=== PATIENT | male | born 1975 | race Hispanic/Latino ===

== ENCOUNTER 2016-11-27 17:37 | Emergency (ER) ==
[2016-11-27 18:26] LABS: MANUAL DIFF NEEDED? NO
[2016-11-27 18:31] LABS: BASO% 0.3 % (0.0-0.8); EOS# 0.09 X1000 (0.0-0.7); EOS% 0.8 % (0.0-10.0); HEMATOCRIT 46.9 % (42.0-52.0); HEMOGLOBIN 15.8 g/dL (14.0-18.0); IMM GRAN# 0.05 X1000 (0.0-0.04); IMM GRAN% 0.5 % (0.0-0.5); LYMPH% 16.7 % (20.5-51.1); MCH 27.3 PG (27-31); MCHC 33.7 g/dL (33-37); MONO# 0.68 X1000 (0.11-0.59); MONO% 6.3 % (1.7-9.3); MPV 9.2 FL (7.4-10.4); NEUT% 75.4 % (42.2-75.2); PLT 352 X1000 (130-400); RBC 5.79 XMIL (4.7-6.1)
[2016-11-27 18:51] LABS: AGAP 14; ALBUMIN 4.9 g/dL (3.5-5.0); ALKALINE PHOSPHATASE 72 U/L (32-122); BUN 7 mg/dL (8-22); CALCIUM 10.5 mg/dL (8.8-10.2); CHLORIDE 97 mmol/L (98-107); COSMO 272; GOT 19 U/L (10-34); GPT 36 U/L (10-44); POTASSIUM 4.4 mmol/L (3.5-5.1); SODIUM 137 mmol/L (136-145); TCO2 26 mmol/L (25-35); TOTAL BILIRUBIN 0.44 mg/dL (0.20-1.00); TOTAL PROTEIN 8.6 g/dL (6.3-8.3)
[2016-11-27] MEDS ORDERED: NS 500 ML IV ONE (19:03)
[2016-11-27] MEDS ORDERED: TORADOL IV ONE (19:03)
[2016-11-27] MEDS ORDERED: COMPAZINE IV ONE (19:03)
[2016-11-27] MEDS ORDERED: MORPHINE IV ONE (19:03)
[2016-11-27] MEDS ORDERED: BENADRYL IV ONE (19:03)
--- NOTE | 2016-11-27 19:08 | PROVIDER DOCUMENTATION ---
HPI-Headache <Ramsey Ho - Last Filed: 11/27/16 20:34> - General Source: patient - History of Present Illness-Headache Headache Location: reports: temporal Quality of Pain: reports: aching Severity: reports: mild Onset/Duration: reports: 2 days ago Timing: reports: still present Headache Context: reports: nothing Any recent trauma/injury?: reports: none Headache severity at the maximum: mild Headache Exacerbated by:: reports: light Associated Symptoms: reports: headache, nausea, other (sore throat) Similar Symptoms Previously?: No Recently seen or treated by another doctor?: No <Millie Alcaraz - Last Filed: 11/27/16 23:31> - General Chief Complaint: B/P Problems Stated Complaint: STAUFFER,HIGH B/P,NAUSEA,NECK PAIN Time Seen by Provider: 11/27/16 18:45 Allergies/Adverse Reactions: Patient Allergies Allergy/AdvReac Type Severity Reaction Status Date / Time No Known Allergies Allergy Verified 11/27/16 19:07 Home Medications: Home Medication List Medication Instructions Recorded Confirmed Last Taken Type Montelukast [Singulair] 10 mg PO DAILY 12/05/12 11/27/16 12/05/12 History Butalb/APAP/Caffeine [Fioricet] 1 each PO Q4H PRN PRN #20 capsule 11/27/16 Unknown Rx Ranitidine HCl [Zantac] 1 tab PO DAILY 11/27/16 11/27/16 Unknown History - History of Present Illness-Headache Nature of Presenting Problem: 41 year old M presents to the Ed with a cc of headache, nausea, and elevated blood pressure with an onset of 2 days ago. Pt states that he has had a sore throat today. Pt states that he has taken Tylenol and Fiorect with no relief. ( Millie Alcaraz) Review of Systems - Adult - REVIEW OF SYSTEMS - ADULT Constitutional: denies: chills, fever Eyes: reports: no symptoms reported Ears, Nose, Mouth & Throat: reports: throat pain. denies: ear pain Cardiovascular: reports: no symptoms reported Respiratory: denies: cough, shortness of breath Gastrointestinal: reports: nausea. denies: vomiting Genitourinary: denies: dysuria, hematuria Musculoskeletal: denies: muscle aches, muscle weakness Integumentary: denies: skin sores/ulcer, skin thickening Neurological: reports: headache/migraines. denies: dizziness/vertigo Psychiatric: reports: no symptoms reported Endocrine: reports: no symptoms reported Hematologic/Lymphatic: reports: no symptoms reported Allergic/Immunologic: reports: no symptoms reported All Other Systems: Reviewed and Negative <Millie Alcaraz - Last Filed: 11/27/16 23:31> Past History - Adult - PAST MEDICAL HISTORY-ADULT Review of Records: reports: Nursing Assessment Review, Medications Reviewed Major Childhood Illnesses: reports: denies history - PRIOR SURGERIES/PROCEDURES Surgical/Procedure History: reports: appendectomy, hernia repair - IMMUNIZATION STATUS Childhood Immunizations: See Nurse Assessment Flu Vaccine: See Nurse Assessment - SOCIAL HISTORY Smoking: non-smoker Substance Use: none/never Alcohol Use Frequency: never <Millie Alcaraz - Last Filed: 11/27/16 23:31> Physical Exam- Neurological - Physical Exam-Neuro Initial Vital Signs Reviewed: Yes General Appearance: appears well, alert, no apparent distress Eye Exam: bilateral eye: normal inspection, PERRL, EOMI Head Injury: no evidence of injury Respiratory: chest non-tender, lungs clear, normal breath sounds Cardiovascular: normal peripheral pulses, regular rate, rhythm, no edema newsperson Exam: normal hearing, normal speech, PERRL Motor/Sensory: no motor deficit, no sensory deficit, no pronator drift Neurologic: newsperson II-XII nml as tested, no motor/sensory deficits Integumentary: normal color, normal turgor, warm/dry Psych/Mental Status: normal mood/affect, normal thought content, normal thought process, oriented x 3 <Apryl Alcaraza - Last Filed: 11/27/16 23:31> Progress <Ramsey Ho - Last Filed: 11/27/16 20:34> - EKG 1 Time of EKG reading by physician:: 18:15 EKG Read and Signed by:: Rmasey Ho EKG Interpretation (*Must complete 3 of following elements*): Abnormal Rate: 76 Rhythm: NSR with sinus arrhythmia QRS: LVH (moderate voltage criteria) <KieranMillie - Last Filed: 11/27/16 23:31> - PLAN OF CARE/RESULTS Progress/Plan/Lab Results: Orders Category Date Time Status CBC WITH ELECTRONIC DIFF [HEME] Stat Lab 11/27/16 18:12 Completed CMP [COMPREHENSIVE METABOLIC PANEL] [CHEM] Stat Lab 11/27/16 18:12 Completed TROPONIN T Stat Lab 11/27/16 18:12 Completed 0.9% Sodium Chloride Inj [Ns] 500 ml Med 11/27/16 19:03 Discontinued IV 999 mls/hr Diphenhydramine [Benadryl] Med 11/27/16 19:03 Discontinued 25 mg IV NOW ONE Ketorolac [Toradol] Med 11/27/16 19:03 Discontinued 30 mg IV NOW ONE Morphine Med 11/27/16 19:03 Discontinued 4 mg IV NOW ONE Prochlorperazine [Compazine] Med 11/27/16 19:03 Discontinued 10 mg IV NOW ONE EKG [EKG] Stat Ther 11/27/16 18:09 Ordered Laboratory Tests 11/27/16 11/27/16 11/27/16 18:12 18:12 18:12 WBC 10.78 RBC 5.79 Hgb 15.8 Hct 46.9 MCV 81.0 MCH 27.3 MCHC 33.7 RDW Std Deviation 14.0 Plt Count 352 MPV 9.2 Immature Gran % (Auto) 0.5 Neut % (Auto) 75.4 H Lymph % (Auto) 16.7 L Mcdonough % (Auto) 6.3 Eos % (Auto) 0.8 Baso % (Auto) 0.3 Immature Gran # (Auto) 0.05 H Neut # (Auto) 8.13 H Lymph # (Auto) 1.80 Mcdonough # (Auto) 0.68 H Eos # (Auto) 0.09 Baso # (Auto) 0.03 Sodium 137 Potassium 4.4 Chloride 97 L Carbon Dioxide 26 Anion Gap 14 BUN 7 L Creatinine 1.0 Estimated GFR/1.73 m2 > 60 BUN/Creatinine Ratio 7 Glucose 111 H Calculated Osmolality 272 Calcium 10.5 H Total Bilirubin 0.44 AST 19 ALT 36 Alkaline Phosphatase 72 Troponin T < 0.010 Total Protein 8.6 H Albumin 4.9 Globulin 3.7 Albumin/Globulin Ratio 1.3 Vital Signs - 24 hr 11/27/16 11/27/16 18:03 20:33 Temperature 98.3 F Pulse Rate 88 76 Respiratory 18 16 Rate Blood Pressure 154/110 136/94 O2 Sat by Pulse 100 95 Oximetry Pt given results and will be d/c home w/ rx to follow up with PCP. Pt verbally understood instructions. PT remained clinically stable throughout the course of the ED stay and will return if symptoms worsen. (Millie Alcaraz) Departure - Departure Time of Disposition Order: 20:34 Certified Medical Emergency: Emergent <Ramsey Ho - Last Filed: 11/27/16 20:34> <Millie Alcaraz - Last Filed: 11/27/16 23:31> - Departure DIAGNOSIS: Migraine Qualifiers: Migraine type: without aura Status migrainosus presence: without status migrainosus Intractability: not intractable Qualified Code(s): G43.009 - Migraine without aura, not intractable, without status migrainosus Disposition: HOME 01 Condition: Good Additional Instructions: ED Follow Up Instructions: You have been treated by a care provider in the Emergency Department. These instructions are being provided to you so you can have an understanding of how to care for yourself upon discharge. Upon discharge from the Emergency Department, you are responsible for making arrangements for follow-up care by a physician of your choice. Take all prescribed medications as directed. Return to the Emergency Department immediately for any new or worsening symptoms. You may call the Physician Referral phone number at [phone] to obtain a list of Physicians who are taking new patients. Prescriptions: Butalb/APAP/Caffeine [Fioricet] 1 each PO Q4H PRN PRN #20 capsule PRN Reason: Headache Referrals: Tra Rooney MD [Primary Care Provider] - Forms: Return to School/Parent Work Instructions: Migraine Headache, [id number] Attestation - Scribe Verification/Attestation Scribe:: Millie Alcaraz Acting as Scribe for:: Ramsey Ho Scribe documention review:: This chart was documented by a scribe and accurately reflects the service the provider performed and the decisions made by the provider. <Millie Alcaraz - Last Filed: 11/27/16 23:31> Physician Attestation
[2016-11-27 20:34] VITALS: BP 136/94
--- NOTE | 2016-11-28 05:31 | EKG Report ---
Test Performed on : 11/27/2016 6:15:11 PM Test Reason : ELEVATED BP Blood Pressure : / mmHG Vent. Rate : 076 BPM Atrial Rate : 076 BPM P-R Int : 156 ms QRS Dur : 092 ms QT Int : 376 ms P-R-T Axes : 060 -09 033 degrees QTc Int : 423 ms Normal sinus rhythm. with sinus arrhythmia. Moderate voltage criteria for LVH, may be normal variant Borderline ECG When compared with ECG of 05-DEC-2012 11:08, No significant change was found Unconfirmed Result
== END 2016-11-27 21:01 | disposition home or self-care (01) ==
LOC: ED 17:37
DX: G43.009 Migraine without aura, not intractable, without status migrainosus (principal); R94.31 Abnormal electrocardiogram [ECG] [EKG]; R51 Headache; R11.0 Nausea; J02.9 Acute pharyngitis, unspecified; M54.2 Cervicalgia; R03.0 Elevated blood-pressure reading, without diagnosis of hypertension
CPT/HCPCS: 80053; 84484; 85025; 93005; J0780; J1200; J1885; J2270; J7040

== ENCOUNTER 2019-07-17 04:06 | Inpatient (IN) ==
--- NOTE | 2019-07-14 16:12 | EKG Report ---
Test Performed on : 07/14/2019 4:05:52 PM Test Reason : PAT Blood Pressure : / mmHG Vent. Rate : 082 BPM Atrial Rate : 082 BPM P-R Int : 158 ms QRS Dur : 092 ms QT Int : 358 ms P-R-T Axes : 068 006 030 degrees QTc Int : 418 ms Normal sinus rhythm. Normal ECG When compared with ECG of 30-OCT-2018 08:37, T wave amplitude has increased in Anterior leads Unconfirmed Result
[2019-07-14 16:27] LABS: URINE SOURCE VOIDED
[2019-07-14 16:33] LABS: BILIRUBIN URINE NEGATIVE (NEGATIVE); BLOOD URINE TRACE (NEGATIVE); COLOR YELLOW; GLUCOSE URINE NEGATIVE (NEGATIVE); KETONE URINE TRACE mg/dL (NEGATIVE); LEUKOCYTES URINE NEGATIVE (NEGATIVE); NITRITE URINE NEGATIVE (NEGATIVE); PROTEIN URINE NEGATIVE (NEGATIVE); SP GRAVITY URINE 1.008; TURBIDITY URINE CLEAR (CLEAR); UROBILINOGEN URINE NORMAL (NORMAL)
[2019-07-14 16:34] LABS: UR EPITHELIAL CELLS <10 /HPF (<10); URINE BACTERIA NEGATIVE /HPF; URINE RBC <10 /HPF (<10); URINE WBC <10 /HPF (<10)
--- NOTE | 2019-07-14 16:34 | Diag Imaging Result Doc PS360 ---
EXAM: CHEST-2 VIEWS HISTORY: PAT TECHNIQUE: Two views COMPARISON: 12/05/2012 he FINDINGS: The lungs are well expanded. The heart is not enlarged. The vessels are not distended. There are no infiltrates. No pleural effusions. IMPRESSION: No acute abnormality. Electronically signed by Dangelo Giron 07/14/2019 4:31 PM
[2019-07-14 16:37] LABS: BASO# 0.06 X1000 (0.0-0.2); BASO% 0.6 % (0.0-0.8); EOS# 0.29 X1000 (0.0-0.7); EOS% 2.7 % (0.0-10.0); HEMATOCRIT 45.4 % (42.0-52.0); HEMOGLOBIN 14.8 g/dL (14.0-18.0); IMM GRAN# 0.02 X1000 (0.0-0.04); IMM GRAN% 0.2 % (0.0-0.5); LYMPH# 1.57 X1000 (1.2-3.4); LYMPH% 14.6 % (20.5-51.1); MCH 26.1 PG (27-31); MCHC 32.6 g/dL (33-37); MCV 80.1 FL (81-99); MONO# 0.75 X1000 (0.11-0.59); MPV 8.7 FL (7.4-10.4); NEUT# 8.05 X1000 (1.4-6.5); NEUT% 74.9 % (42.2-75.2); PLT 410 X1000 (130-400); RBC 5.67 XMIL (4.7-6.1); WBC 10.74 X1000 (4.8-10.8)
[2019-07-17] MEDS ORDERED: LR 1,000 ML ONE (06:28)
[2019-07-17] MEDS ORDERED: ENTEREG ONE (06:28)
[2019-07-17] MEDS ORDERED: FLAGYL 1000 MG/NS 1,000 MG/200 ML IVPB IV ONE (06:45)
[2019-07-17] MEDS ORDERED: MEFOXIN 1 GM/NS 1 GM/50 ML IVPB IV ONE (07:00)
[2019-07-17] MEDS ORDERED: MARCAINE 0.25% ONE (07:06)
[2019-07-17] MEDS ORDERED: EXPAREL 1.3% ONE (07:06)
[2019-07-17] MEDS ORDERED: DIPRIVAN 1% ONE (07:42)
[2019-07-17] MEDS ORDERED: SUFENTA ONE (08:18)
[2019-07-17] MEDS ORDERED: NEOSTIGMINE ONE (10:21)
[2019-07-17 10:32] LABS: URINE SOURCE CATH
[2019-07-17 10:41] LABS: BILIRUBIN URINE NEGATIVE (NEGATIVE); BLOOD URINE NEGATIVE (NEGATIVE); COLOR STRAW; GLUCOSE URINE NEGATIVE (NEGATIVE); KETONE URINE 40 mg/dL (NEGATIVE); LEUKOCYTES URINE NEGATIVE (NEGATIVE); NITRITE URINE NEGATIVE (NEGATIVE); PROTEIN URINE NEGATIVE (NEGATIVE); SP GRAVITY URINE 1.006; TURBIDITY URINE CLEAR (CLEAR); UROBILINOGEN URINE NORMAL (NORMAL)
[2019-07-17 10:43] LABS: UR EPITHELIAL CELLS <10 /HPF (<10); URINE BACTERIA NEGATIVE /HPF; URINE RBC <10 /HPF (<10); URINE WBC <10 /HPF (<10)
[2019-07-17] MEDS ORDERED: DILAUDID PCA VIAL ONE (10:46)
[2019-07-17] MEDS ORDERED: D5 1/2 NS + KCL 20 MEQ 1,000 ML ONE (10:47)
[2019-07-17] MEDS: DILAUDID ONE ×2 (11:09→11:17)
[2019-07-17] MEDS ORDERED: APRESOLINE ONE (11:16)
[2019-07-17] MEDS ORDERED: LOPRESSOR ONE (11:16)
[2019-07-17] MEDS ORDERED: VERSED ONE (11:49)
[2019-07-17] MEDS ORDERED: SODIUM CHLORIDE 0.9% INJ PRN (12:45)
[2019-07-17] MEDS ORDERED: PHENERGAN IV PRN (12:45)
[2019-07-17] MEDS ORDERED: NARCAN IV PRN (12:45)
[2019-07-17] MEDS ORDERED: DILAUDID PCA VIAL IV PRN (12:45)
--- NOTE | 2019-07-17 18:30 | OPERATIVE NOTE ---
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 PROCEDURE: 1. Exploratory laparotomy. 2. Sigmoid resection with 28 mm EEA anastomosis. 3. Liver biopsies x3. SURGEON: Erwin Olvera MD. DESCRIPTION OF PROCEDURE: The patient was brought to the operating room. After satisfactory induction of IV and endotracheal anesthesia, initially a TAP block was performed by the anesthesiologist. His abdomen was subsequently prepped and draped in the appropriate manner. He was placed in the exenteration stirrups and Forrest catheter was placed. A supraumbilical to pubis midline incision was taken sharply down through skin and subcutaneous tissue. The fascia was incised in the midline and the peritoneum was entered. On exploration, there was a large bulky tumor in the distal sigmoid just proximal to the peritoneal reflection. There appeared to be significant adenopathy in the mesentery around the tumor. Palpation of the liver revealed multiple hepatic metastases. There was no evidence of carcinomatosis and no evidence of omental involvement. The patient had a previous appendectomy and there was some minimal scar tissue around the cecum. The small bowel was packed superiorly. The sigmoid was mobilized along the white line of Toldt proximal and distal to the tumor. Five centimeters proximal to the large bulky tumor, the sigmoid was divided with a pursestring device, and sized to a medium 28 mm EEA. The anvil was placed and sewed in. Distally, the colon was freed up 5 cm distal to the tumor and divided with a TA-45 stapler. Mesenteric attachments were taken down with the LigaSure instrument. On reaching the superior hemorrhoidals, there were doubly clamped with Danielle clamps, divided, and tied with a double-0 silk and suture ligated with a 2-0 silk. The specimen was subsequently passed off for routine pathology. The proximal colon was freed up somewhat. A standard EEA anastomosis was performed with a satisfactory Kristina test. Two satisfactory donuts were obtained. Attention was then taken to the liver. The liver was exposed. There was a large hepatic metastasis just anterior to the gallbladder. Three passes with the Yovany- Cut [asat*]needle were performed revealing firm cores and they were sent for routine pathology as well. The abdomen was subsequently irrigated. There appeared to be no evidence of bleeding, ischemia, or leakage. After accounting for all laps and sponges, the omentum was drawn down over the anastomosis and closure was initiated. The peritoneum was closed in a single running layer of #1 Vicryl. Fascia was closed with interrupted #1 [maxon*]. The skin was closed with stainless steel clips. A sterile dressing was applied. The patient was awakened and extubated in the operating room and transferred to Recovery. ESTIMATED BLOOD LOSS: About 200 mL. cc: Erwin Olvera MD MTDD
[2019-07-17] MEDS: PERIDEX MT SCH (21:29)
[2019-07-17] MEDS: D5 1/2 NS + KCL 20 MEQ 1,000 ML IV SCH (21:31)
[2019-07-18] MEDS: BENADRYL IV PRN ×3 (03:23→20:26)
[2019-07-18 06:38] LABS: BASO# 0.01 X1000 (0.0-0.2); BASO% 0.1 % (0.0-0.8); EOS# 0.17 X1000 (0.0-0.7); EOS% 1.3 % (0.0-10.0); HEMOGLOBIN 11.9 g/dL (14.0-18.0); IMM GRAN# 0.04 X1000 (0.0-0.04); IMM GRAN% 0.3 % (0.0-0.5); LYMPH# 1.81 X1000 (1.2-3.4); LYMPH% 14.1 % (20.5-51.1); MCH 26.1 PG (27-31); MCHC 32.2 g/dL (33-37); MCV 81.1 FL (81-99); MONO# 1.18 X1000 (0.11-0.59); MONO% 9.2 % (1.7-9.3); PLT 348 X1000 (130-400); RBC 4.56 XMIL (4.7-6.1); RDW 13.9 % (11.5-14.5); WBC 12.81 X1000 (4.8-10.8)
[2019-07-18 07:01] LABS: AGAP 10; BUN 6 mg/dL (8-22); CALCIUM 8.7 mg/dL (8.8-10.2); CHLORIDE 99 mmol/L (98-107); COSMO 271; CREATININE 0.9 mg/dL (0.7-1.2); ESTIMATED GFR > 60; GLUCOSE 124 mg/dL (70-104); POTASSIUM 4.1 mmol/L (3.5-5.1); SODIUM 136 mmol/L (136-145); TCO2 27 mmol/L (25-35)
[2019-07-18] MEDS: D5 1/2 NS + KCL 20 MEQ 1,000 ML IV SCH ×2 (08:07→17:33)
[2019-07-18] MEDS: SINGULAIR PO SCH (09:56)
[2019-07-18] MEDS: COZAAR PO SCH (09:56)
[2019-07-18] MEDS: ENTEREG PO SCH ×2 (09:56→20:27)
[2019-07-18] MEDS: PERIDEX MT SCH ×2 (09:57→20:26)
[2019-07-19] MEDS: D5 1/2 NS + KCL 20 MEQ 1,000 ML IV SCH ×2 (03:46→15:22)
[2019-07-19 07:13] LABS: BASO# 0.03 X1000 (0.0-0.2); BASO% 0.3 % (0.0-0.8); EOS# 0.23 X1000 (0.0-0.7); EOS% 2.2 % (0.0-10.0); HEMATOCRIT 35.8 % (42.0-52.0); HEMOGLOBIN 11.6 g/dL (14.0-18.0); LYMPH# 1.48 X1000 (1.2-3.4); MCH 26.7 PG (27-31); MCHC 32.4 g/dL (33-37); MCV 82.5 FL (81-99); MONO# 1.14 X1000 (0.11-0.59); MONO% 10.8 % (1.7-9.3); MPV 9.2 FL (7.4-10.4); NEUT# 7.68 X1000 (1.4-6.5); NEUT% 72.7 % (42.2-75.2); PLT 311 X1000 (130-400); RBC 4.34 XMIL (4.7-6.1); WBC 10.56 X1000 (4.8-10.8)
[2019-07-19 07:17] LABS: AGAP 13; BUN 2 mg/dL (8-22); CHLORIDE 102 mmol/L (98-107); COSMO 276; CREATININE 0.9 mg/dL (0.7-1.2); ESTIMATED GFR > 60; GLUCOSE 111 mg/dL (70-104); POTASSIUM 3.6 mmol/L (3.5-5.1); SODIUM 140 mmol/L (136-145); TCO2 25 mmol/L (25-35)
[2019-07-19] MEDS: SINGULAIR PO SCH (09:40)
[2019-07-19] MEDS: COZAAR PO SCH (09:40)
[2019-07-19] MEDS: PERIDEX MT SCH ×2 (09:40→20:04)
[2019-07-19] MEDS: ENTEREG PO SCH ×2 (09:40→20:04)
[2019-07-19 10:59] LABS: CALCIUM 9.6 mg/dL (8.8-10.2)
[2019-07-19] MEDS: BENADRYL IV PRN (15:21)
[2019-07-20] MEDS ORDERED: DULCOLAX PR ONE (08:35)
[2019-07-20] MEDS: SINGULAIR PO SCH (10:36)
[2019-07-20] MEDS: ENTEREG PO SCH ×2 (10:36→22:53)
[2019-07-20] MEDS: COZAAR PO SCH (10:36)
[2019-07-20] MEDS: PERIDEX MT SCH ×2 (10:37→22:53)
[2019-07-20] MEDS: D5 1/2 NS + KCL 20 MEQ 1,000 ML IV SCH (10:48)
[2019-07-20] MEDS: NORCO-10 PO PRN ×2 (13:45→22:54)
[2019-07-21 07:16] VITALS: BP 123/79
--- NOTE | 2019-07-30 10:12 | DISCHARGE SUMMARY ---
ADMISSION DATE: 07/17/2019 DISCHARGE DATE: 07/21/2019 DIAGNOSIS: Stage IV colon cancer with a large sigmoid lesion and multiple hepatic metastases. PROCEDURE PERFORMED: Exploratory laparotomy, sigmoid resection with primary 28 mm EEA anastomosis, and liver biopsy. HISTORY AND HOSPITAL COURSE: The patient is a 43-year-old male who was referred by Dr. Malcolm and Dr. Jeff after evaluation by Dr. Casey that reveals an obstructing lesion in the sigmoid colon. The biopsies were equivocal. However, CT scan reveals a large bulky lesion with significant adenopathy, as well as multiple hepatic metastases. The patient underwent an outpatient mechanical and chemical bowel prep, and was admitted. On the day of admission, he underwent an exploratory laparotomy with sigmoid resection with primary anastomosis with a 28 mm EEA anastomosis, as well as a liver biopsy. The tumor was quite bulky. There were some fairly large lymph nodes, 3 out of 40 were positive, but he had significant metastatic disease in his liver. Hospitalization was largely uneventful. His wound was healing well at discharge. He was having spontaneous bowel movements and tolerating solid food. The plan is for initiation of chemotherapy at the earliest possible date, possibly late July or early August, to treat the metastatic disease. Overall prognosis is guarded. cc: Erwin Olvera MD
== END 2019-07-21 10:08 | disposition home or self-care (01) | DRG 330 ==
LOC: SURHOLD 04:06 → 4N 12:33
PROVIDERS: ADMIT Surgery; ATTEND Surgery